=== PATIENT | female | born 1980 | race Caucasian/White ===

== ENCOUNTER 2019-09-23 08:40 | Observation (INO) | payer OTHER, SELFPAY ==
--- NOTE | ~2019-09-23 | CT_ITS ---
EXAMINATION: CT chest abdomen pelvis w con EXAM DATE: 09/23/2019 10:22 INDICATION: Severe chest and abdominal pain. TECHNIQUE: Spiral CT of the chest, abdomen and pelvis was performed following intravenous injection o f 100 mL Omnipaque 350. Axial, coronal and sagittal images were reviewed. Coronal maximum intensity pixel images of chest reviewed. The dose-length product (DLP) for this examination was 382.03 mGy-c m. The exposure was tailored according to patient size (auto mA exposure control), and iterative rec onstruction (ASIR) was used as additional dose reduction technique. Correlation is made to ultrasound right upper quadrant same date. FINDINGS: CHEST: There is a 3 mm nodule along the right major fissure in the right lower lobe likely granuloma . The lungs are otherwise clear. No central pulmonary emboli. No aortic dissection. There are no ple ural or pericardial effusions. Tracheobronchial tree is patent. There is no mediastinal, hilar or axillary lymphadenopathy. There is no pneumothorax. Heart normal in size. No evidence of coron yelena arterial calcification. ABDOMEN PELVIS: The liver, spleen, adrenal glands and pancreas are unremarkable. Gallbladder is unre markable. No biliary obstruction. Portal and splenic veins are patent. Kidneys enhance symmetrical ly. There is no hydronephrosis. The uterus and ovaries are unremarkable, no adnexal mass. The nory dder is unremarkable. There is no retroperitoneal or pelvic lymphadenopathy. The appendix is normal. The stomach and small bowel are unremarkable. There is mild sigmoid colonic diverticulosis. There is no adjacent inflammatory change to suggest diverticulitis. There is expecte d amount of colonic stool. No free intraperitoneal gas. The bones are unremarkable. IMPRESSION: 1. No acute chest, abdomen or pelvis findings Reviewed, dictated and finalized at location A.
--- NOTE | ~2019-09-23 | US_ITS ---
EXAMINATION: US right upper quadrant EXAM DATE: 09/23/2019 09:39 INDICATION: Right upper quadrant pain. TECHNIQUE: Multiple grayscale and Doppler images of the abdomen right upper quadrant were obtained (b y a technologist who performed the scan) and subsequently reviewed. There is no prior study for darcy willis. FINDINGS: The pancreatic head and body are normal in appearance. The pancreatic tail is not visualized. The l iver has normal echogenicity and contour. There are no focal liver lesions identified. There is no evidence of intrahepatic biliary duct dilation. Portal venous flow was seen in the hepatopedal, nor mal direction and has normal Doppler waveform. No right-sided hydronephrosis. Common bile duct measures 5 mm, which is normal. The gallbladder wall is normal in thickness, with ex pected amount of distention. No sonographic evidence of pericholecystic fluid. There is no cholelit hiases. Technologist performing exam reports patient did not demonstrate sonographic Kaur's sign. Please note that this sign is less reliable in patients who have received pain medication. IMPRESSION: 1. Unremarkable abdominal ultrasound exam. Reviewed, dictated and finalized at location A.
[2019-09-23 08:46] VITALS: BP 167/103; PULSE 82; RESP 34; TEMP 36.6; O2SAT 100
--- NOTE | 2019-09-23 08:47 | ED.ABDPAIN ---
HPI - Abdominal Pain General Chief Complaint: Abdominal Pain Stated Complaint: ABD Pain Time Seen by Provider: 09/23/19 08:46 Source: patient Mode of arrival: wheelchair Limitations: no limitations History of Present Illness HPI narrative: Patient is a 39-year-old female who presents for evaluation of abdominal pain. Patient reports severe abdominal pain in the upper abdomen which radiates into her chest. Described as sharp, stabbing in nature most on the right side with radiation to the middle back. Patient reports associated burning chest pain. No shortness of breath. She reports nausea. Patient denies lower abdominal pain. Patient was recently admitted to [facility] with negative CAT scan and MRI of the abdomen and discharged home yesterday. Patient states her pain is too severe for nothing to be wrong. Patient denies fever or chills, no history of abdominal surgeries. Patient noticed that pain is most severe in the morning. Related Data Home Medications Medication Instructions Recorded Confirmed hydrocodone-acetaminophen 1 tablet PO Q4H PRN 09/23/19 Allergies Allergy/AdvReac Type Severity Reaction Status Date / Time PROPOXYPHENE NAPSYLATE Allergy Mild Rash Uncoded 09/23/19 08:52 Review of Systems Review of Systems: Narrative: CONSTITUTIONAL: Denies fever, chills, or sweats. CARDIOVASCULAR: Reports chest pain RESPIRATORY: Denies cough or dyspnea. GASTROINTESTINAL: Reports upper abdominal pain, nausea GENITOURINARY: Denies dysuria or hematuria. SKIN: Denies rash or itching. MUSCULOSKELETAL: Reports middle back pain NEUROLOGIC: Denies headache, numbness, or weakness. [facility] Past Medical History Medical History No pertinent past medical history Surgical History Surgical History H/O wisdom tooth extraction Social History Social History (Updated 09/23/19 @ 09:02 by Claudette Ndiaye MD) Smoking status: Never smoker Alcohol intake: never Substance use: never Living arrangements: with family Gender identity (if verbalized by the patient): Female Exam Narrative: Exam Narrative: GENERAL: Awake, alert, tearful, hyperventilating HEAD: Normocephalic, atraumatic. EYES: PERRLA and EOMI. ENT: Nares clear, no rhinorrhea or epistaxis. Mucous membranes moist. NECK: Supple. CHEST: Tachypneic, hyperventilating no respiratory distress, breathing even and non labored HEART: Regular rate, sinus rhythm ABDOMEN: Obese, nondistended, right upper quadrant tenderness, epigastric tenderness, positive guarding, nonrigid EXTREMITIES: Normal range of motion. No edema. SKIN: Warm, dry, no rash. NEURO:No focal deficits. Alert and oriented x3 Course Vital Signs Vital signs: Vital Signs Temperature 36.6 C 09/23/19 08:46 Pulse Rate 82 09/23/19 08:46 Respiratory Rate 34 H 09/23/19 08:46 Blood Pressure 167/103 H 09/23/19 08:46 Pulse Oximetry 100 09/23/19 08:46 Temperature 36.6 C 09/23/19 08:46 Pulse Rate 71 09/23/19 11:00 Respiratory Rate 18 09/23/19 11:00 Blood Pressure 105/59 L 09/23/19 11:00 Pulse Oximetry 99 09/23/19 11:00 MDM - Abdominal Pain MDM Narrative Medical decision making narrative: Patient presented for evaluation of severe abdominal pain and chest pain. At the time of initial assessment, ABCs are intact and vital signs are stable. Physical exam is notable for a tearful, hyperventilating patient who is very severe abdominal pain on exam. IV access obtained and labs were drawn. Laboratory results are really unremarkable. No severe leukocytosis, no electrolyte abnormality or acute kidney injury. Negative d-dimer, negative troponin testing, nothing found on imaging of the chest, abdomen and pelvis to account for the patient's pain. No chest pain at time of reassessment. Patient will be admitted to hospitalist for intractable abdominal pain, at this
--- NOTE | 2019-09-23 09:02 | ECG_ITS ---
Measurements Intervals [place] Rate: 60 P: 10 UT: 132 QRS: -16 QRSD: 101 T: -6 QT: 390 QTc: 390 Interpretive Statements SINUS RHYTHM EARLY PRECORDIAL R/S TRANSITION VOLTAGE CRITERIA FOR LVH BASELINE ARTIFACT- I, III, AVL, AVF BORDERLINE ECG Electronically Signed On 09-23-2019 10:46:00 CDT by Rashi Fung D.O.
[2019-09-23 09:03] LABS: Basophils Absolute Auto 0.1 K/mm3 (0.0-0.1); Basophils Percent Auto 0.7 % (0.2-1.2); Eosinophils Absolute Auto 0.1 K/mm3 (0-0.3); Eosinophils Percent Auto 1.1 % (0-4.4); Hematocrit 43.6 % (37.0-47.0); Hemoglobin 14.3 g/dL (12.0-15.0); Immature Granulocyte Absolute 0.07 K/mm3 (0.00-0.031); Immature Granulocyte Percent A 0.7 % (0-0.5); Lymphocytes Absolute Auto 1.44 K/mm3 (0.9-3.2); Lymphocytes Percent Auto 13.7 % (18.3-44.2); Mean Corpuscular HGB Conc 32.8 g/dl (32-36); Mean Corpuscular Hemoglobin 30.4 pg (26-34); Mean Corpuscular Volume 92.8 fl (80-100); Monocytes Absolute Auto 0.6 K/mm3 (0.1-0.6); Monocytes Percent Auto 5.6 % (2.6-8.5); Neutrophils Absolute Auto 8.2 K/mm3 (1.3-6.7); Neutrophils Percent Auto 78.2 % (45.5-73.1); Platelet Count Result 218 k/mm3 (150-375); Red Cell Distribution Width 14.1 % (11.5-14.5); White Blood Count 10.5 K/mm3 (4.5-10.0)
[2019-09-23] MEDS: ONDANSETRON INJ 4 MG/2 ML VIAL IV PUSH (09:04)
[2019-09-23] MEDS: SODIUM CHLORIDE 0.9% IV 1,000 ML 999 ML IV CONT (09:04)
[2019-09-23 09:08] LABS: Add Urine Microscopic? YES; Appearance Urine Clear (Clear); Bacteria Urine Trace /hpf; Bilirubin Urine Negative (Negative); Blood Urine 2+ (Negative); Color Urine Straw (Yellow); Glucose Urine UA Negative (Negative); Ketones Urine Negative (Negative); Leukocyte Esterase Ur Trace LEU/UL (Negative); Mucus Urine Rare /lpf; Nitrate Urine Negative (Negative); Protein Urine Negative (Negative); Specific Grav Ur 1.012 (1.001-1.035); Squamous Epithelial Cell Urine Many /hpf (Few); Urobilinogen Urine Negative mg/dL (<2.0)
--- NOTE | 2019-09-23 09:11 | PC.NURSE ---
ULTRASOUND AT BEDSIDE TO TAKE PT, EKG HAS NOT BEEN OBTAINED WILL OBTAIN UPON PT RETURN.
[2019-09-23 09:16] LABS: Alanine Aminotransferase 16 U/L (4-35); Albumin Level 4.7 g/dL (3.5-5.1); Alkaline Phosphatase 64 U/L (38-126); Aspartate Amino Transferase 19 U/L (14-36); Bilirubin,Total 0.4 mg/dL (0.2-1.3); Blood Urea Nitrogen 7 mg/dL (7-17); Calcium 9.8 mg/dL (8.4-10.2); Carbon Dioxide 26 mmol/L (22-30); Chloride 101 mmol/L (98-107); Estimated CRCL calculation 127 ml/min; Estimated Glomerular Filt Rate > 60; Glucose 120 mg/dL (65-105); Lipase 68 U/L (23-300); Sodium 136 mmol/L (137-145)
[2019-09-23 09:23] LABS: INR 0.9; Prothrombin Time 12.3 Seconds (11.1-14.7)
[2019-09-23 09:24] LABS: Partial Thromboplastin Time 28.9 SECONDS (22.3-36.8)
[2019-09-23 09:28] LABS: Troponin I < 0.012 ng/mL (0.000-0.034)
--- NOTE | 2019-09-23 09:28 | PC.NURSE ---
PT STILL INULTRASOUND, WILL OBTAIN EKG UPON RETURN, EDP AWARE.
--- NOTE | 2019-09-23 09:45 | PC.NURSE ---
PT HAS RETURNED FROM ULTRASOUND AT THIS TIME, OBTAINING EKG.
[2019-09-23 09:52] VITALS: BP 170/108; PULSE 58; RESP 15; O2SAT 99
--- NOTE | 2019-09-23 09:54 | PC.NURSE ---
PT STILL WRITHING AROUND IN BED, CRYING AND MOANING. ERP AWARE, STATES THAT SHE WILL PLACE FURTHER ORDERS ON THE CHART.
--- NOTE | 2019-09-23 10:31 | PC.NURSE ---
GIOVANA BELTRAN INFORMED THAT PT IS STILL CRYING AND WRITHING IN BED, VERBAL ORDER FROM GIOVANA BELTRAN FOR ANOTHER DOSE OF 1MG DILAUDID IVP STAT.
[2019-09-23 11:00] VITALS: BP 105/59; PULSE 71; RESP 18; O2SAT 99
--- NOTE | 2019-09-23 11:10 | PC.NURSE ---
PT REPORT GIVEN BEDSIDE TO TELLY LOPEZ AT THIS TIME, SHE HAS ASSUMED PT CARE.
[2019-09-23] MEDS: IBUPROFEN IV 800 MG/200 ML 800 MG/200 ML BAG 400 MG IVPB (13:46)
[2019-09-23] MEDS: SODIUM CHLORIDE 0.9% IV 1,000 ML 125 ML IV CONT ×2 (13:46→15:57)
[2019-09-23 15:12] VITALS: BMI 47.5
[2019-09-23 15:23] VITALS: BP 142/98; PULSE 71; RESP 18; TEMP 36.2; O2SAT 100; BMI 47.5
--- NOTE | 2019-09-23 16:08 | PM.IMHP ---
H&P: HPI History of Present Illness Chief complaint: Intractable abdominal pain Narrative: Shar Mackenzie is a 39 year old female Who is here for evaluation of abdominal pain. The patient stated that his she has severe epigastric pain that is now on her. Umbilical area. The patient had been hospitalized at [facility] and had a CT scan and ultrasound which were all found to be negative as well as MRI of the abdomen she was discharged yesterday. The patient stated that she was given viscous lidocaine which only numbed her throat and did not help her stomach. She has chronic back pain and takes Vicodin for pain at home. She still me that she had dark stools as well. She to me that she had several loose stools today. She has also had some nausea. She has not seen a GI specialist as of yet. The patient was not sure if her pain was correlating with eating or not. She had chicken Tyshawn 1 night she woke up in the middle night with abdominal pain and acid reflux. She does not smoke or drink alcohol either. Nothing relieves it except for the pain medication she gets at the hospital and nothing makes it worse. Her white count is noted to be 10.5. H&H is normal. Urine has some blood in it but otherwise is negative for UTI. Chest and abdomen CT no acute chest abdomen or pelvis findings. Ultrasound of the abdomen unremarkable abdominal ultrasound. Date of service 09/23/2019 Review of Systems Review of Systems: All systems reviewed & are unremarkable except as noted in HPI and below Constitutional: Constitutional: Reports as per HPI and Reports no additional constitutional complaints Eyes: Eyes: Reports as per HPI and Reports no additional eye complaints ENT: Reports system reviewed and no additional complaints, except as documented and Reports Normal hearing present Cardiovascular: Cardiovascular: Reports no additional cardiovascular complaints Respiratory: Respiratory: Reports no additional respiratory complaints and Reports no additional respiratory complaints Gastrointestinal: Gastrointestinal: Reports as per HPI and Reports no additional gastrointestinal complaints Musculoskeletal: Musculoskeletal: Reports no additional musculoskeletal complaints Integumentary/Breasts: Skin/Breast: Reports system reviewed and no additional complaints, except as docu and Reports as per HPI Neurologic: Reports system reviewed and no additional complaints, except as documented, Reports as per HPI and Reports Normal hearing present Psychiatric: Psychiatric: Reports no additional psychiatric complaints and Reports as per HPI Endocrine: Endocrine: Reports no additional endocrine complaints Hematologic/Lymphatic: Hematologic/Lymphatic: Reports no additional hematologic/lymphatic complaints Allergic/Immunologic: Allergic/Immunologic: Reports no additional allergic/immunologic complaints PMFSH Past Medical History Medical History (Updated 09/23/19 @ 16:12 by Betina Martins NP) Chronic lower back pain Surgical History Surgical History H/O wisdom tooth extraction Social History Social History (Updated 09/23/19 @ 16:13 by Betina Martins NP) Social History: the patient is a night custodian at 2 different restaurants. She does not have a durable power workers compensation attorney for healthcare. The patient desires to be a full code. The patient has had a total of 7 children altogether. She is in the middle of a divorce. She denies any alcohol or illicit drugs. She does smoke medical marijuana. In her history it is noted that the patient does smoke. But she tells me she does Smoking packs per day: 1 Smoking cigarettes per day: 20.0 Years smoked: 9 Smoking pack-years: 9.00 Smoking status: Former smoker Tobacco type: cigarettes Smoking end date: 09/23/99 Alcohol intake: never Substance use: current Substance use type: marijuana Living arrangements: with family Gender identity
[2019-09-23 17:31] LABS: Hematocrit 39.6 % (37.0-47.0); Hemoglobin 12.7 g/dL (12.0-15.0)
[2019-09-23] MEDS: PANTOPRAZOLE SODIUM IV 40 MG VIAL IV PUSH (19:01)
[2019-09-23 20:00] VITALS: PULSE 64; RESP 18; O2SAT 99
[2019-09-23 20:39] VITALS: BP 111/64; PULSE 64; RESP 18; TEMP 36.3; O2SAT 99
[2019-09-23] MEDS: FAMOTIDINE 20 MG/2 ML VIAL IV PUSH (20:48)
[2019-09-23 22:46] LABS: Hematocrit 37.6 % (37.0-47.0)
[2019-09-24] MEDS: SODIUM CHLORIDE 0.9% IV 1,000 ML 125 ML IV CONT ×3 (00:15→20:03)
[2019-09-24 04:00] VITALS: BP 141/71; PULSE 68; RESP 18; TEMP 36.1; O2SAT 100
[2019-09-24] MEDS: DICYCLOMINE HCL INJ 20 MG/2 ML VIAL IM (04:05)
[2019-09-24 05:14] LABS: Hematocrit 35.8 % (37.0-47.0); Hemoglobin 11.4 g/dL (12.0-15.0)
[2019-09-24 05:39] LABS: Alanine Aminotransferase 12 U/L (4-35); Albumin Level 3.5 g/dL (3.5-5.1); Alkaline Phosphatase 45 U/L (38-126); Aspartate Amino Transferase 14 U/L (14-36); Bilirubin,Total 0.2 mg/dL (0.2-1.3); Blood Urea Nitrogen 4 mg/dL (7-17); CRP 1.5 mg/dL (<1.0); Calcium 8.3 mg/dL (8.4-10.2); Carbon Dioxide 26 mmol/L (22-30); Chloride 107 mmol/L (98-107); Estimated CRCL calculation 128 ml/min; Estimated Glomerular Filt Rate > 60; Glucose 93 mg/dL (65-105); Magnesium 1.8 mg/dL (1.6-2.3); Potassium 3.8 mmol/L (3.4-5.0); Sodium 138 mmol/L (137-145)
[2019-09-24 06:44] LABS: IFOB Positive Control Positive; Immunochemical Fecal Occult Bl Negative (N)
[2019-09-24] MEDS: PANTOPRAZOLE SODIUM IV 40 MG VIAL IV PUSH ×2 (08:51→20:06)
[2019-09-24] MEDS: FAMOTIDINE 20 MG/2 ML VIAL IV PUSH ×2 (09:19→20:06)
[2019-09-24 10:46] LABS: Hematocrit 36.6 % (37.0-47.0); Hemoglobin 11.7 g/dL (12.0-15.0)
--- NOTE | 2019-09-24 11:23 | WPDGICN ---
Assessment and Plan Assessment and plan (1) Intractable abdominal pain: Code(s): R10.9 - Unspecified abdominal pain Status: Acute Assessment and Plan: Patient has complaints of abdominal pain. There has been concern over dark stools. Plan is to his check stool Hemoccult. An EGD will be arranged tomorrow morning. Further recommendations after endoscopy in the interim we will treated with Protonix. (2) Chronic lower back pain: Code(s): M54.5 - Low back pain; G89.29 - Other chronic pain Status: Chronic GI Consult Note Consult date/time: 09/24/19 11:23 HPI: Shar Mackenzie is a 39 year old female Seen in evaluation at the request of the hospitalist service. She currently feels improved after taking medications on receiving appearing at the hospital. Her past medical history is significant for chronic low back pain. She states her bowel habits are normal. She denies any bleeding. She denies any fever. She has had no recent travel. Social history is significant for occasional marijuana use. Review of Systems Review of Systems: All systems reviewed & are unremarkable except as noted in HPI and below PMFSH Past Medical History Medical History Chronic lower back pain Surgical History Surgical History H/O wisdom tooth extraction Social History Social History Social History: the patient is a cafe server at 2 different restaurants. She does not have a durable power commercial real estate attorney for healthcare. The patient desires to be a full code. The patient has had a total of 7 children altogether. She is in the middle of a divorce. She denies any alcohol or illicit drugs. She does smoke medical marijuana. In her history it is noted that the patient does smoke. But she tells me she does Smoking packs per day: 1 Smoking cigarettes per day: 20.0 Years smoked: 9 Smoking pack-years: 9.00 Smoking status: Former smoker Tobacco type: cigarettes Smoking end date: 09/23/99 Alcohol intake: never Substance use: current Substance use type: marijuana Living arrangements: with family Gender identity (if verbalized by the patient): Female Spiritual care concerns: No Meds Home Medications and Allergies Home Medications Medication Instructions Recorded Confirmed Type hydrocodone-acetaminophen 1 tablet PO Q4H PRN 09/23/19 History Allergies Allergy/AdvReac Type Severity Reaction Status Date / Time PROPOXYPHENE NAPSYLATE Allergy Mild Rash Uncoded 09/23/19 08:52 Vital Signs Vital Signs - 24 hr 09/23/19 15:23 09/23/19 20:00 09/23/19 20:39 Temperature 97.1 F L 97.3 F L Pulse Rate 71 64 64 Respiratory Rate 18 18 18 Blood Pressure 142/98 H 111/64 Pulse Oximetry 100 99 99 09/24/19 04:00 Temperature 97 F L Pulse Rate 68 Respiratory Rate 18 Blood Pressure 141/71 H Pulse Oximetry 100 Exam Narrative: Exam Narrative: Physical exam reveals patient to be alert. Vital signs stable. HEENT exam unremarkable. She is anicteric. Lungs are clear to auscultation and percussion. Heart is without murmur or extra sounds. Abdominal exam bowel sounds are present soft nontender with no organomegaly. Digital external rectal exam normal. Results Labs CBC & Chem 7: 09/24/19 10:33 09/24/19 04:56 Labs: Short CBC 09/23/19 09/23/19 09/24/19 Range/Units 16:51 22:36 04:56 Hgb 12.7 12.0 11.4 L (12.0-15.0) g/dL Hct 39.6 37.6 35.8 L (37.0-47.0) % 09/24/19 Range/Units 10:33 Hgb 11.7 L (12.0-15.0) g/dL Hct 36.6 L (37.0-47.0) % BMP 09/24/19 04:56 Sodium 138 Potassium 3.8 Chloride 107 Carbon Dioxide 26 BUN 4 L Creatinine 0.60 L Glucose 93 Calcium 8.3 L Liver Function 09/24/19 Range/Units 04:56 Total Bilirubin 0.2 (0.2-1.3) mg/
[2019-09-24] MEDS: diphenhydrAMINE HCl INJ 50 MG/ML VIAL 25 MG IV PUSH (11:53)
[2019-09-24 14:00] VITALS: BP 98/56; PULSE 70; RESP 16; TEMP 36.5; O2SAT 98
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
[2019-09-24] MEDS: DICYCLOMINE HCL 10 MG CAPSULE 20 MG PO ×2 (16:52→20:06)
[2019-09-24 22:00] VITALS: BP 106/77; PULSE 50; RESP 20; TEMP 36.6; O2SAT 100
[2019-09-25] MEDS: SODIUM CHLORIDE 0.9% IV 1,000 ML 125 ML IV CONT ×2 (03:58→12:39)
[2019-09-25] MEDS: ONDANSETRON INJ 4 MG/2 ML VIAL IV PUSH (04:00)
[2019-09-25 05:56] VITALS: BP 131/88; PULSE 72; RESP 20; TEMP 36.2; O2SAT 96
[2019-09-25 06:00] LABS: Hematocrit 36.8 % (37.0-47.0); Hemoglobin 11.7 g/dL (12.0-15.0)
[2019-09-25 06:17] LABS: Blood Urea Nitrogen 3 mg/dL (7-17); Calcium 8.5 mg/dL (8.4-10.2); Carbon Dioxide 26 mmol/L (22-30); Chloride 105 mmol/L (98-107); Estimated CRCL calculation 151 ml/min; Estimated Glomerular Filt Rate > 60; Glucose 84 mg/dL (65-105); Magnesium 1.8 mg/dL (1.6-2.3); Sodium 137 mmol/L (137-145)
[2019-09-25] MEDS: PANTOPRAZOLE SODIUM IV 40 MG VIAL IV PUSH (07:40)
[2019-09-25] MEDS: FAMOTIDINE 20 MG/2 ML VIAL IV PUSH (07:40)
--- NOTE | 2019-09-25 10:07 | PC.NURSE ---
To GI Lab by emily. IV saline locked.
[2019-09-25] MEDS: LACTATED RINGERS 1,000 ML 150 ML IV CONT (10:23)
[2019-09-25 10:27] VITALS: BP 153/95; PULSE 73; RESP 18; TEMP 37; O2SAT 100
--- NOTE | 2019-09-25 10:45 | WPDANESEPPF ---
Anes - Initial Pre Proc Eval Procedure: Operation Date: 09/25/19 11:00 Proposed Procedures p Esophagogastroduodenoscopy - John Mixon MD Date/Time: 09/25/19 10:45 Surgeon: Trina Gardner PA-C Pre Op Diagnosis: Intractable abdominal pain Patient Data Age: 39 Gender: F Height: 5 ft 2 in Weight: 118 kg Last Vital Signs Temp 37.0 C 09/25/19 10:27 Pulse 73 09/25/19 10:27 Resp 18 09/25/19 10:27 BP 153/95 H 09/25/19 10:27 Pulse Ox 100 09/25/19 10:27 Allergies Allergy/AdvReac Type Severity Reaction Status Date / Time PROPOXYPHENE NAPSYLATE Allergy Mild Rash Uncoded 09/23/19 08:52 Home Medications Medication Instructions Recorded Confirmed Type hydrocodone-acetaminophen 1 tablet PO Q4H PRN 09/25/19 09/25/19 History Laboratory Tests 09/24/19 09/25/19 09/25/19 10:33 05:07 05:07 Hgb 11.7 g/dL L g/dL 11.7 g/dL L g/dL (12.0-15.0) (12.0-15.0) Hct 36.6 % L % 36.8 % L % (37.0-47.0) (37.0-47.0) Sodium 137 mmol/L mmol/L (137-145) Potassium 4.0 mmol/L mmol/L (3.4-5.0) Chloride 105 mmol/L mmol/L (98-107) Carbon Dioxide 26 mmol/L mmol/L (22-30) Anion Gap 10.0 mmol/L mmol/L (7-16) BUN 3 mg/dL L mg/dL (7-17) Creatinine 0.50 mg/dL L mg/dL (0.7-1.0) Estim Creat Clear Calc 151 ml/min ml/min Estimated GFR > 60 (59 - ) Glucose 84 mg/dL mg/dL (65-105) Calcium 8.5 mg/dL mg/dL (8.4-10.2) Magnesium 1.8 mg/dL mg/dL (1.6-2.3) Patient hx anesthesia problems: none Family hx anesthesia problems: none [facility] Past Medical History Medical History Chronic lower back pain Surgical History Surgical History H/O wisdom tooth extraction Social History Social History Social History: 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 She does not have a durable power environmental attorney for healthcare. The patient desires to be a full code. The patient has had a total of 7 children altogether. She is in the middle of a divorce. She denies any alcohol or illicit drugs. She does smoke medical marijuana. In her history it is noted that the patient does smoke. But she tells me she does Smoking packs per day: 1 Smoking cigarettes per day: 20.0 Years smoked: 9 Smoking pack-years: 9.00 Smoking status: Former smoker Tobacco type: cigarettes Smoking end date: 09/23/99 Alcohol intake: never Substance use: current Substance use type: marijuana Living arrangements: with family Gender identity (if verbalized by the patient): Female Spiritual care concerns: No Anes - Eval Final PreProcedure Day of Procedure 09/25/19 10:45 Patient weight: morbidly obese Heart: regular rate and rhythm Lungs: decreased breath sounds Airway: Mallampati scale class II Neurological: alert and oriented Last oral intake: >/= 8 hours ASA classification: III Emergent: no Anesthetic plan: proceed Anesthesia type and monitoring: general GIVS and standard monitoring Informed Consent: The patient's anesthetic plan and its attendant risks and benefits were discussed with the patient/family/POA. Questions were solicited and answers provided to the satisfaction of the patient/family/POA.
[2019-09-25] MEDS: BENZOCAINE (*SP) 60 ML SPRAY CAN (HURRICAINE) 1 SPRAY MUCOUS MEM (10:53)
[2019-09-25 11:02] VITALS: BP 114/67; PULSE 77; RESP 21; O2SAT 98
[2019-09-25 11:12] VITALS: BP 115/58; PULSE 67; RESP 25; O2SAT 98
[2019-09-25 11:18] VITALS: BP 141/85; PULSE 58; RESP 25; O2SAT 100
[2019-09-25] MEDS: DICYCLOMINE HCL 10 MG CAPSULE 20 MG PO (12:39)
[2019-09-25 14:00] VITALS: BP 112/77; PULSE 83; RESP 16; TEMP 36.6; O2SAT 99
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
--- NOTE | 2019-09-26 19:03 | WPDANESPN ---
Anes - Prog Note Post-Op Date/Time: 09/26/19 19:03 Cardiovascular status: normal Respiratory status: normal Airway patency: baseline Mental status: baseline Post-Op hydration status: normal Vital Signs: Last Vital Signs Temp 97.9 F 09/25/19 14:00 Pulse 83 09/25/19 14:00 Resp 16 09/25/19 14:00 BP 112/77 09/25/19 14:00 Pulse Ox 99 09/25/19 14:00 Laboratory Tests 09/25/19 05:07 09/25/19 05:07 Patient Feedback: Patient satisfied with anesthetic care.
== END 2019-09-25 16:55 | disposition home or self-care (01) ==
LOC: ANHED 12:13 → ANH2MED 12:27
PROVIDERS: Internal Medicine Gastroenterology; Nurse Practitioner; Admitting Provider Family Medicine; Emergency Provider Emergency Medicine; PCP Internal Medicine; Visit Provider Physician Assistant
PROC: 0DJ08ZZ Inspection of Upper Intestinal Tract, Via Natural or Artificial Opening Endoscopic (ICD-10-PCS; CPT 43235; principal; 2019-09-25 11:00)
DX: R10.13 Epigastric pain (principal); G89.29 Other chronic pain; M54.5 Low back pain; K92.1 Melena; E66.01 Morbid (severe) obesity due to excess calories; Z68.42 Body mass index [BMI] 45.0-49.9, adult; Z87.891 Personal history of nicotine dependence; Z79.891 Long term (current) use of opiate analgesic
CPT/HCPCS: 43239; 36415; 71260; 74177; 76705; 80048; 80053; 81001; 81025; 82274; 83690; 83735; 84443; 84484; 85014; 85018; 85025; 85380; 85610; 85730; 86140; 87081; 93005; 96361; 96365; 96367; 96372; 96374; 96375; 96376; 99285; A9270; C9113; G0378; G0379; J0131; J0500; J1170; J1200; J1741; J2405; J2704; J7030; J7120; Q9967

== ENCOUNTER 2020-11-20 08:57 | Outpatient (CLI) | payer OTHER, SELFPAY ==
--- NOTE | ~2020-11-20 | MR_ITS ---
EXAMINATION: MR lumbar spine wo con EXAM DATE: 11/20/2020 10:06 INDICATION: Low back pain, absent left ovary lacks. TECHNIQUE: Multi-sequential, multiplanar MR images of the lumbar spine were obtained without contrast . Sagittal T1, T2, T2 fat saturation images. Axial T2 weighted images. Comparison is made to prior examination from 03/26/2019. FINDINGS: The vertebral bodies are aligned in the AP dimension. Vertebral body and disc heights are w ell-maintained. There are no suspicious marrow signal abnormalities. The conus medullaris terminates at the L1/2 level and has normal signal intensity and morphology. Paraspinal soft tissue is unremark able. Level by level evaluation: T12-L1: Disc does not extend beyond the endplate margin. Facet arthropathy: None. Neural foraminal stenosis: No stenosis. Central canal stenosis: No stenosis. L1-L2: Disc does not extend beyond the endplate margin. Facet arthropathy: None. Neural foraminal stenosis: No stenosis. Central canal stenosis: No stenosis. L2-L3: Disc does not extend beyond the endplate margin. Facet arthropathy: Mild. Neural foraminal stenosis: No stenosis. Central canal stenosis: No stenosis. L3-L4: There is a minimal diffuse disc bulge. Facet arthropathy: Mild. Neural foraminal stenosis: Mild left. Central canal stenosis: No stenosis. L4-L5: There is a mild diffuse disc bulge. Facet arthropathy: Mild. Neural foraminal stenosis: Mild bilateral. Central canal stenosis: No stenosis. L5-S1: Disc does not extend beyond the endplate margin. Facet arthropathy: Mild to moderate. Neural foraminal stenosis: Mild left. Central canal stenosis: No stenosis. IMPRESSION: 1. Mild lumbar spondylosis. Reviewed, dictated and finalized at location B. IMPRESSION: 1. Mild lumbar spondylosis.
== END 2020-11-20 08:58 | disposition home or self-care (01) ==
LOC: CHSIMG 08:59
PROVIDERS: PCP Internal Medicine; Visit Provider Internal Medicine
DX: M54.5 Low back pain (principal); M54.10 Radiculopathy, site unspecified
CPT/HCPCS: 72148

== ENCOUNTER 2021-03-10 10:25 | Outpatient (CLI) | payer OTHER, SELFPAY ==
--- NOTE | ~2021-03-10 | MM_ITS ---
EXAMINATION: MM screening [place] BI w anatoliy HISTORY: Screening mammogram, family history of breast cancer in her mother. TECHNIQUE: Craniocaudal and mediolateral oblique 3-D tomosynthesis images were obtained and synthetic 2-D images were generated. CAD analysis was submitted and interpreted. COMPARISON: No prior mammogram is available for comparison at this institution. BREAST PARENCHYMAL COMPOSITION: There are scattered areas of fibroglandular density. FINDINGS: RIGHT BREAST: There is focal asymmetry in the posterior third of the upper outer quadrant of the enio st. In addition, there is a possible mass in the posterior third of inner breast. LEFT BREAST: There is no evidence of suspicious mass, calcification, or architectural distortion to s uggest malignancy. IMPRESSION: 1. Right breast findings as described above. 2. Additional mammographic views and possible breast ultrasound are recommended. BI-RADS Category 0: Incomplete: Needs additional imaging evaluation. Reviewed, dictated and finalized at location A. LE PASTER IMPRESSION: 1. Right breast findings as described above. 2. Additional mammographic views and possible breast ultrasound are recommended . BI-RADS Category 0: Incomplete: Needs additional imaging evaluation.
== END 2021-03-10 10:26 | disposition home or self-care (01) ==
LOC: CHSIMG 10:28
PROVIDERS: PCP Internal Medicine; Visit Provider Internal Medicine
DX: Z12.31 Encounter for screening mammogram for malignant neoplasm of breast (principal)
CPT/HCPCS: 77063; 77067

== ENCOUNTER 2021-03-15 09:28 | Outpatient (CLI) | payer OTHER, MEDICAID, SELFPAY ==
--- NOTE | ~2021-03-15 | MMUS_ITS ---
EXAMINATION: MM diagnostic cheyenne RT w anatoliy, US breast RT limited HISTORY: Follow-up right breast asymmetries TECHNIQUE: Additional 3-D tomosynthesis images of the right breast were performed and synthetic 2-D i mages were generated. CAD analysis was submitted and interpreted. High resolution Limited right breas t ultrasound was performed. COMPARISON: 03/10/2021 BREAST PARENCHYMAL COMPOSITION: Breast composed of scattered areas of fibroglandular density. FINDINGS: MAMMOGRAPHIC FINDINGS: There is focal asymmetry involving the lower inner quadrant of the right breast posteriorly with cent ral lucency. The focal asymmetry laterally in the right breast on CC view compresses with spot views. ULTRASOUND: Limited right breast ultrasound: Normal heterogeneous echotexture without focal solid or cystic mass. IMPRESSION: 1. Probable benign focal asymmetry medial aspect of the right breast without sonographic correlate. 2. Recommend 6 month follow-up diagnostic right mammogram BI-RADS category 3, probably benign findings. Reviewed, dictated and finalized at location A. [employer] IMPRESSION: 1. Probable benign focal asymmetry medial aspect of the right breast without so nographic correlate. 2. Recommend 6 month follow-up diagnostic right mammogram BI-RADS category 3, probably benign findings.
== END 2021-03-15 09:29 | disposition home or self-care (01) ==
PROVIDERS: PCP Internal Medicine; Visit Provider Internal Medicine
DX: R92.8 Other abnormal and inconclusive findings on diagnostic imaging of breast (principal)
CPT/HCPCS: 76642; 77061; 77065; G0279

== ENCOUNTER 2021-10-03 08:52 | Outpatient (CLI) | payer OTHER, SELFPAY ==
--- NOTE | ~2021-10-03 | MMUS_ITS ---
CORRECTED REPORT Title change 10/04/21 [facility] [place] EXAMINATION: MM DIAGNOSTIC LITO RT W LORENA, US breast RT limited HISTORY: Follow-up right breast asymmetry TECHNIQUE: Additional 3-D tomosynthesis images of the right breast were performed and synthetic 2-D images were generated. CAD analysis was submitted and interpreted. High resolution Limited right breast ultrasound was performed. COMPARISON: Comparison to multiple prior studies sequentially, with oldest reviewed study dated 03/10/2021. BREAST PARENCHYMAL COMPOSITION: FINDINGS: MAMMOGRAPHIC FINDINGS: Stable focal asymmetry in the upper inner quadrant of the right breast posteriorly. No significant change to appearance with spot compression and mediolateral views. ULTRASOUND: Limited right breast ultrasound: Normal heterogeneous echotexture without focal mass. IMPRESSION: 1. Stable right breast asymmetry, upper inner quadrant, likely benign. 2. Recommend 6 month follow-up diagnostic right mammogram BI-RADS category 3, probably benign findings. Reviewed, dictated and finalized at location A. T MTDD IMPRESSION: 1. Stable right breast asymmetry, upper inner quadrant, likely benign. 2. Recommend 6 month follow-up diagnostic right mammogram BI-RADS category 3, probably benign findings.
== END 2021-10-03 08:53 | disposition home or self-care (01) ==
PROVIDERS: PCP Nurse Practitioner; Visit Provider Nurse Practitioner
DX: R92.8 Other abnormal and inconclusive findings on diagnostic imaging of breast (principal)
CPT/HCPCS: 76642; 77061; 77065; G0279

== ENCOUNTER 2022-04-04 08:45 | Outpatient (CLI) | payer OTHER, SELFPAY ==
--- NOTE | ~2022-04-04 | MMUS_ITS ---
EXAMINATION: MM diagnostic cheyenne BI w anatoliy, US breast RT limited HISTORY: Follow-up right breast asymmetry TECHNIQUE: Additional 3-D tomosynthesis images of the breasts were performed and synthetic 2-D images were generated. CAD analysis was submitted and interpreted. High resolution Limited right breast ult rasound was performed. COMPARISON: Comparison to multiple prior studies sequentially, with oldest reviewed study dated 08/2021. BREAST PARENCHYMAL COMPOSITION: Breast composed of scattered areas of fibroglandular density FINDINGS: MAMMOGRAPHIC FINDINGS: The breasts are stable. Focal asymmetry in the lower inner quadrant of the right breast is unchanged from prior study. The left breast is stable without evidence for malignancy. ULTRASOUND: Limited right breast ultrasound: Normal heterogeneous echotexture without focal solid or cystic mass. IMPRESSION: 1. Stable right breast asymmetry. No sonographic correlate. 2. Recommend 6 month follow-up diagnostic right mammogram. BI-RADS category 3, probably benign findings. Reviewed, dictated and finalized at location A. NE FIREFIGHTER IMPRESSION: 1. Stable right breast asymmetry. No sonographic correlate. 2. Recommend 6 month follow-up diagnostic right mammogram. BI-RADS category 3, probably benign findings.
== END 2022-04-04 08:46 | disposition home or self-care (01) ==
LOC: CHSIMG 08:47
PROVIDERS: PCP Nurse Practitioner; Visit Provider Nurse Practitioner
DX: R92.8 Other abnormal and inconclusive findings on diagnostic imaging of breast (principal)
CPT/HCPCS: 76642; 77062; 77066; G0279

== ENCOUNTER 2022-12-18 08:54 | Outpatient (CLI) | payer OTHER, SELFPAY ==
--- NOTE | ~2022-12-18 | MMUS_ITS ---
EXAMINATION: MM diagnostic cheyenne RT w anatoliy, US breast RT complete HISTORY: Follow-up right breast asymmetries TECHNIQUE: Additional 3-D tomosynthesis images of the right breast were performed and synthetic 2-D i mages were generated. CAD analysis was submitted and interpreted. High resolution complete right enio st ultrasound was performed. COMPARISON: Comparison to multiple prior studies sequentially, with oldest reviewed study dated 08/2021. BREAST PARENCHYMAL COMPOSITION: Breast composed of scattered areas of fibroglandular density FINDINGS: MAMMOGRAPHIC FINDINGS: . There are no new masses, calcifications or architectural distortion in the right breast to suggest malignancy. ULTRASOUND: Complete US of all 4 quadrants of the right breast and retroareolar region was reviewed. Normal heter ogeneous echotexture throughout the right breast without discrete mass. IMPRESSION: 1. No evidence for malignancy in the right breast. 2. Routine yearly screening mammogram and regular clinical breast examination are recommended. BI-RADS Category 1: Negative Reviewed, dictated and finalized at location A. IMPRESSION: 1. No evidence for malignancy in the right breast. 2. Routine yearly screening mammogram and regular clinical breast examination a re recommended. BI-RADS Category 1: Negative
== END 2022-12-18 08:55 | disposition home or self-care (01) ==
LOC: CHSIMG 08:57
PROVIDERS: PCP Nurse Practitioner Family; Visit Provider Nurse Practitioner Family
DX: R92.8 Other abnormal and inconclusive findings on diagnostic imaging of breast (principal)
CPT/HCPCS: 76641; 77061; 77065; G0279

== ENCOUNTER 2023-12-31 08:07 | Outpatient (CLI) | payer OTHER, SELFPAY ==
--- NOTE | ~2023-12-31 | MM_ITS ---
EXAMINATION: MM screening chey[place] BI w anatoliy HISTORY: Screening mammogram, family history of breast cancer in her mother. TECHNIQUE: Craniocaudal and mediolateral oblique 3-D tomosynthesis images were obtained and synthetic 2-D images were generated. CAD analysis was submitted and interpreted. COMPARISON: 12/18/2022, 04/04/2022, 10/03/2021, 03/15/2021, 03/10/2021 BREAST PARENCHYMAL COMPOSITION:Not Dense. The breasts are almost entirely fatty FINDINGS: Stable small mass at the posterior right breast centrally. No suspicious mass, calcificatio n, or architectural distortion are identified in either breast to suggest malignancy. There has been no suspicious interval change. IMPRESSION: No mammographic evidence of malignancy. Recommend routine screening mammography in one year. BI-RADS Category 2: Benign finding(s). Reviewed, dictated and finalized at [facility].
== END 2023-12-31 08:08 | disposition home or self-care (01) ==
LOC: CHSIMG 08:09
PROVIDERS: PCP Nurse Practitioner Family; Visit Provider Nurse Practitioner Family
DX: Z12.31 Encounter for screening mammogram for malignant neoplasm of breast (principal)
CPT/HCPCS: 77063; 77067